=== PATIENT | female | born 1960 | race Caucasian/White ===

== ENCOUNTER 2020-10-19 10:35 | Outpatient (CLI) | payer BC, OTHER | END 2020-10-19 10:36 | disposition home or self-care (01) | LOC: CSHWCC 10:35 | PROVIDERS: ATTEND Nurse Practitioner Family | DX: T81.89XD Other complications of procedures, not elsewhere classified, subsequent encounter (principal); E11.622 Type 2 diabetes mellitus with other skin ulcer; E03.8 Other specified hypothyroidism; E78.2 Mixed hyperlipidemia; I87.2 Venous insufficiency (chronic) (peripheral); R60.0 Localized edema; W01.198S Fall on same level from slipping, tripping and stumbling with subsequent striking against other object, sequela | CPT/HCPCS: 99213; G0463 ==

== ENCOUNTER 2020-10-26 10:11 | Outpatient (CLI) | payer BC, OTHER | END 2020-10-26 10:12 | disposition home or self-care (01) | LOC: CSHWCC 10:11 | PROVIDERS: ATTEND Nurse Practitioner Family | DX: T81.89XD Other complications of procedures, not elsewhere classified, subsequent encounter (principal); I87.2 Venous insufficiency (chronic) (peripheral); E11.622 Type 2 diabetes mellitus with other skin ulcer; L98.499 Non-pressure chronic ulcer of skin of other sites with unspecified severity; R60.0 Localized edema; E03.8 Other specified hypothyroidism; E78.2 Mixed hyperlipidemia; W01.198D Fall on same level from slipping, tripping and stumbling with subsequent striking against other object, subsequent encounter | CPT/HCPCS: 99213; G0463 ==

== ENCOUNTER 2020-11-02 10:23 | Outpatient (CLI) | payer BC, OTHER | END 2020-11-02 10:24 | disposition home or self-care (01) | LOC: CSHWCC 10:23 | PROVIDERS: ATTEND Nurse Practitioner Family | DX: T81.89XD Other complications of procedures, not elsewhere classified, subsequent encounter (principal); I87.2 Venous insufficiency (chronic) (peripheral); E11.622 Type 2 diabetes mellitus with other skin ulcer; L98.499 Non-pressure chronic ulcer of skin of other sites with unspecified severity; E03.8 Other specified hypothyroidism; E78.2 Mixed hyperlipidemia; R60.0 Localized edema; W01.198D Fall on same level from slipping, tripping and stumbling with subsequent striking against other object, subsequent encounter | CPT/HCPCS: 99213; G0463 ==